=== PATIENT | female | born 1980 | race Caucasian/White ===

== ENCOUNTER 2022-06-08 08:16 | Observation (INO) ==
--- NOTE | 2022-05-17 11:32 | Anesthesiology Consultation ---
Date of Service May 17, 2022 Assessment & Plan (1) Encounter for pre-operative examination: - COVID screening: Per assessment on 05/17: No known COVID-19 positive contacts or current COVID-19 related symptoms. Travel screen negative. At surgeon discretion if preop Covid testing being done. - Outpatient joint assessment: Pt currently scheduled for inpatient pathway. If surgeon requests review for outpatient joint pathway, patient is an acceptable candidate for outpatient joint program from anesthesia standpoint pending surgeon's office assessment of pt motivation/strong home support/completion of same day joint program preop requirements. - S/P Left hip arthroscopy (for labral tear: 12/06/20): Grade view 2, MAC#3, ETT 7.5 at [facility]. No issues noted per post-op anesthesia progress note. Chart Review Chart Review: Acceptable Risk for Surgery and Patient seen in Pre Admission Testing Teaching & Discussion Pre-Anesthesia Teaching/Discussion Notes: Instructed NPO after midnight before surgery,except medications with 15 cc of water. Medication instructions pr ovided according to the PAT guidelines. History Surgery Operation Date: 06/08/22 07:00 Proposed Procedures p Left Total Hip Arthroplasty - Tae Manzanares MD Height/Weight Height: 5 ft 4 in Weight: 102.058 kg Allergies Allergy/AdvReac Type Severity Reaction Status Date / Time clarithromycin [From Biaxin] AdvReac Mild Gastrointestinal Verified 05/04/22 14:05 Upset Medications Home Medications Medication Instructions Recorded Confirmed Last Taken No Known Home Medications 05/04/22 05/04/22 Unknown Past Medical History Medical History Cardiac murmur Remotely noted per pt No significant murmur noted at PAT appt on 05/17/22 Enlarged thyroid Hx, under surveillance by PCP History of asthma As child History of COVID-19 07/2019 > resolved History of gestational diabetes Obesity Temporomandibular joint disorder Left sided clicking, no locking Exercise / Class Metabolic Activity II 4-5 Yardwork/Stairs/Walk up hill Past Family History Family History Other No family history of adverse response to anesthesia No known health problems Past Surgical History Surgical History History of cholecystectomy History of endometrial ablation History of hip surgery Left hip arthroscopy (for labral tear: 12/06/20): Grade view 2, MAC#3, ETT 7.5 at [facility]. No issues noted per post-op anesthesia progress note. History of tonsillectomy [place] teeth removed Past Anesthesia History No Hx of Anesthesia Complications and No Family Hx of Anesthesia Complications History of PONV No Hx of PONV and No Hx of Motion Sickness Social History Smoking Status: Never smoker Do You Dip or Chew Tobacco: No Hx Alcohol Use: No Hx Substance Use: No substance use type: does not use Review of Systems Patient denies chest pain, shortness of breath, dyspnea on exertion, fever, chills, cough, wheezing, palpitations. Physical Exam Vital Signs VITALS BP 123/83 P 62 TEMP 98.4 SP02 97%RA RESP 16 PHYSICAL Full cervical extension range of motion. Full TMJ range of motion. TMD 4 finger breaths Mallampati Score 1 Dentition: intact Lungs: clear throughout to auscultation Cardiac: regular rate and rhythm, no murmurs noted Spine: normal Extremities: no edema Lab Results Anesthesia Preop Results Results Anesthesia Widget: WBC 7.42 K/ul (4.8-10.8) 05/17/22 Hgb 12.7 g/dl (12.0-16.0) 05/17/22 Hct 38.0 % (34.1-44.9) 05/17/22 Plt 206 K/uL (130-400) 05/17/22 Na 139 mmol/L (136-145) 05/17/22 K 4.4 mmol/L (3.5-5.1) 05/17/22 Cl 107 mmol/L (98-107) 05/17/22 CO2 28 mmol/L (21-32) 05/17/22 BUN 20 mg/dl (6-23) 05/17/22 Creat 0.84 mg/dl (0.6-1.2) 05/17/22 Glucose Level 95 mg/dl (70-99(Fasting)) 05/17/22 PT 9.7 Seconds (9.0-12.0) 05/17/22 PTT 25.9 Seconds (21.0-31.0) 05/17/22 INR 0.9 (0.9-1.1) 05/17/22 HA1c 5.3 % (4.5-5.6) 05/17/22 Urine Color Dark Yellow 05/17/22 Urine Appearance Clear (Clear) 05/17/22 Urine pH 6.0 (4.5-7.5) 05/17/22 Urine Specific [place] 1.036 (1.000-1.030) H 05/17/22 Urine Protein Trace (Negative) H 05/17/22 Urine Glucose (UA) Negative (Negative) 05/17/22 Urine Ketones Negative (Negative) 05/17/22 Urine Blood Negative (Negative) 05/17/22 Urine Nitrite Negative (Negative) 05/17/22 Urine Bilirubin Negative (Negative) 05/17/22 Urine Urobilinogen Negative (Negative) 05/17/22 Urine Leukocyte Esterase Negative (Negative) 05/17/22 Urine WBC (Auto) 1-5 /hpf (0-5) 05/17/22 Urine RBC (Auto) 5-10 /hpf (0-4) H 05/17/22 Urine Hyaline Casts (Auto) 1-5 /lpf (0-5) 05/17/22 Urine Epithelial Cells (Auto) 20-30 /lpf (0-5) H 05/17/22 Urine Bacteria (Auto) Negative (Negative) 05/17/22 Blood Type O Positive 05/17/22 Antibody Screen NEGATIVE 05/17/22 Testing Electrocardiogram Date: 05/17/22 Findings: + SB @ (59) COVID-19 Risk Screen Screening Information COVID-19 Screen Date: 05/17/22 Exposure 21 Days Family/Household +COVID Last 21 Days: No Exposure 10 Days Any COVID Exposure Last 10 Days: No Symptoms Last 10 Days Experienced COVID Sx Last 10 Days: No + COVID 0-90 Days COVID + in Last 0-90 Days: No
--- NOTE | 2022-05-18 16:55 | History & Physical Report ---
Date of Service May 18, 2022 Assessment & Plan (1) Osteoarthritis of left hip: Plan: PRE-OP Diagnosis: Left hip osteoarthritis Planned Procedure: Left total hip arthroplasty Plan: Patient is scheduled to undergo this procedure at the [facility] with a 23-hour observation admission with Dr. Manzanares on May. Risks and complications of the procedure such as: Infection, bleeding, pain, scarring, nerve blood vessel damage, weakness, wound problems, stiffness, incomplete relief of symptoms, hardware failure, hardware loosening, wear, fracture, tendon or ligament injury, dislocation, leg length inequality, blood clots, Embolism, heart attack, stroke and were explained to the patient at her visit today. Informed consent to perform the procedure was obtained. Patient also understands risks of proceeding with surgical intervention during the COVID-19 pandemic. Currently she is asymptomatic and has not been in contact with anyone positive for the virus recently. Patient has an appointment to meet with anesthesia earlier this morning and while there she obtained a CBC with differential, complete metabolic panel, PT/INR, blood type and screen, urinalysis, urine culture and sensitivity, EKG, hemoglobin A1c and a nasal culture for MRSA. Patient will also need preoperative medical clearance from their primary care provider. Patient states that she plans on doing in- home physical therapy for the first 1 to 2 weeks postoperatively with [facility] home care. Patient states that she will most likely elect to do outpatient physical therapy near her home in [place]. Patient will need a walker, raised t oilet seat, shower chair and a hip kit. During today's visit we reviewed the total hip packet as well as precautions. We discussed discharge planning from the hospital. I provided paperwork to obtain a handicap placard for their vehicle. We discussed lectures offered by [facility] in regards to joint replacement surgery via Zoom. I advised the patient that upon discharge from hospital we will prescribe a narcotic pain medication and anti- inflammatory. Patient will also be on an 81 mg aspirin twice daily for blood clot prevention. Patient will be scheduled for 2-week postoperative follow-up visit with myself on June 21. At that visit we will Provide the patient with an order for outpatient physical therapy and rehab protocol. Patient verbalizes understanding of all information provided during today's visit. She thanks for the care that she received. If she has questions or concerns that should arise prior to her surgery, she will contact clinic. This chart was completed utilizing [employer] voice recognition software. Grammatical errors, random word insertions, pronoun errors, and in complete sentences are an occasional consequence of the system. Any questions or concerns about the content, text, or information contained within the body of this dictation should be addressed directly to the physician for clarification. History of Present Illness Chief Complaint: Chief Complaint: Left hip pain Primary Care Provider: Cheko Rogers MD History of Present Illness (including history relevant to procedure): This 41-year-old female presents to the clinic today for preoperative history and physical. Underwent a left hip labral repair with Dr. Manzanares back in 2020. She states that over the past several months she has developed increasing pain in her left groin with limited range of motion of her hip. She states she has difficulty transitioning from a seated to a standing position. She has tried oral steroids, corticosteroid injections and then rehab without any relief for pain. She states she feels a grinding sensation in her hip with certain movements. She states it is starting to affect her activities of daily living and has great difficulty performing either of her 2 jobs. Review Of Systems: A 12 point review of systems performed is unremarkable except for those things stated in the HPI past medical history Past Medical History: Problems: Osteoarthritis of left hip Labral tear of left hip joint Preop examination Left hip pain obesity hist of TMJ Procedure History Procedure Procedure Date Comments Ablation Cholecystectomy Left hip arthroscopy with labral repair Allergies and Sensitivities: No Known Medication Allergies Social history: Completely negative Family history: Hyperlipidemia, cancer and heart disease No Home Medications Found Allergies Allergy/AdvReac Type Severity Reaction Status Date / Time clarithromycin [From Biaxin] AdvReac Mild Gastrointestinal Verified 05/04/22 14:05 Upset Home Medications Medication Instructions Recorded Confirmed Type No Known Home Medications 05/04/22 05/04/22 History Past Med/Surg History Medical History Cardiac murmur Remotely noted per pt No significant murmur noted at PAT appt on 05/17/22 Enlarged thyroid Hx, under surveillance by PCP History of asthma As child History of COVID-19 07/2019 > resolved History of gestational diabetes Obesity Temporomandibular joint disorder Left sided clicking, no locking Surgical History History of cholecystectomy History of endometrial ablation History of hip surgery Left hip arthroscopy (for labral tear: 12/06/20): Grade view 2, MAC#3, ETT 7.5 at [facility]. No issues noted per post-op anesthesia progress note. History of tonsillectomy [place] teeth removed Family History Other No family history of adverse response to anesthesia No known health problems Social History Smoking Status: Never smoker Second Hand Exposure: Yes (SPOUSE SMOKES OUTSIDE/MOTHER SMOKED); Hx Alcohol Use: No Hx Substance Use: No Preferred Language: Nauruan Communication Ability: Effective Audio Video Tech Required: No Beliefs That Will Affect Care: None Current Living Situation: Family current occupational status: employed current occupation: [employer] Feels Safe at Home: Yes Assistive Devices: Crutches Review of Systems All systems reviewed & are unremarkable except as noted in Subjective Physical Exam Physical Exam: Physical Exam: (relevant to the procedure, including heart and lung evaluation) General: Alert and oriented x3 with proper grooming and hygiene Eyes: Pupils are equal reactive to light with accommodation. Extraocular movements are intact Throat: Posterior oropharynx clear with absence of edema, erythema or exudate. Dentition is in appropriate condition Cardiac: Regular rate and rhythm with no murmurs or gallops appreciated Lungs: Clear to auscultation throughout with no wheezing, rales or rhonchi Abdomen: Obese, nondistended, nontender with NABS Extremities: Left hip: Flexion is limited to 90 degrees, internal rotation to 5 degrees and external rotation to 40 degrees. Straight leg raise test causes referred pain to the groin. Logroll test causes referred pain to the groin. Stinchfield test positive. Scour impingement test is also positive. Patient is neurovascular intact in left lower extremity but does walk with a slight antalgic gait. Neuro: Cranial nerves II through XII intact no motor or sensory deficit Skin: Normal in appearance with no open skin areas or discharge Results & Data ([facility]) Diagnostic Findings Studies (relevant to the procedure): Left hip x-rays taken last visit and reviewed by quan superolateral joint line narrowing consistent with arthritis.
[~2022-06-08 08:16] MED LIST: ACETAMINOPHEN 500 MG TAB PO SCH; BUPIVACAINE 0.5 % 5 MG/1 ML PF 10ML VIAL ONE; CeleBREX 200 MG CAP PO SCH; FAMOTIDINE 20 MG TAB PO SCH; LR 15ML/HR IV SCH; LR 500ML BOLUS IV SCH; LR 60ML/HR IV SCH; ROPIVACAINE 0.5% HCL/PF 150 MG, BUPIVACAINE 0.75% MPF 20 ML, EPINEPHrine 0.15 MG, Ketor... INFIL SCH; ROPIVACAINE 0.5% HCL/PF 150 MG, BUPIVACAINE 0.75% MPF 20 ML, EPINEPHrine 30MG/30ML (OR ... INSTIL SCH; Scopolamine 1 MG TDSY TD SCH; TRANEXAMIC ACID 1,000 MG **IV Intra-op IV SCH; TRANEXAMIC ACID 1,000 MG **IV Pre-op IV SCH; ceFAZolin 2000MG 2,000 MG/15 ML SYR IV SCH; dexAMETHasone 4 MG TAB PO SCH; traMADol HCL 50 MG TABLET PO SCH
[2022-06-08] MEDS ORDERED: PROPOFOL IV EMULSION 10 MG/ML 20 ML VIAL IV ONE ×5 (09:39→12:50)
[2022-06-08] MEDS ORDERED: MIDAZOLAM HCL 1 MG/ML 2ML VIAL ONE (09:39)
[2022-06-08] MEDS ORDERED: fentaNYL citrate 100 MCG/2 ML VIAL ONE (09:40)
--- NOTE | 2022-06-08 11:01 | History & Physical Bridge Note ---
Date of Service June 08, 2022 History & Physical Bridge Note I have examined the patient, reviewed the History & Physical and in the interval since the performance of the History & Physical I have noted the following changes of clinical significance: no changes noted
[2022-06-08] MEDS ORDERED: fentaNYL citrate 100 MCG/2 ML VIAL IV PRN (11:02)
[2022-06-08] MEDS ORDERED: ATROPINE SULFATE 0.1 MG/ML 10ML SYR IV PRN (11:02)
[2022-06-08] MEDS ORDERED: ONDANSETRON INJ 2 MG/ML 2 ML VIAL IV PRN ×2 (11:02→14:06)
[2022-06-08] MEDS ORDERED: HYDROmorphone INJ 2 MG/ML SYR/VIAL IV PRN (11:02)
[2022-06-08] MEDS ORDERED: ePHEDrine sulfate 50 MG/ML AMP IV PRN (11:02)
[2022-06-08] MEDS ORDERED: PROMETHAZINE HCL 12.5 MG in SODIUM CHLORIDE 0.9% 50 ML IV PRN (11:02)
[2022-06-08] MEDS ORDERED: ORTHO JOINT ANESTHETIC ONE (11:24)
[2022-06-08] MEDS ORDERED: ceFAZolin 330 MG/ML 1 GM VIAL ONE (13:15)
[2022-06-08] MEDS: ceFAZolin 2000MG 2,000 MG/15 ML SYR IV ONE ×2 (13:16→17:18)
--- NOTE | 2022-06-08 13:53 | Operative Report ---
Post Operative Report Pre & Post Diagnosis Operation Date: 06/08/22 10:50 Pre-Op Diagnosis: Left Hip Osteoarthritis, morbid obesity, hip dysplasia Post-Op Diagnosis: Left Hip Osteoarthritis, morbid obesity, hip dysplasia I identified the patient and participated in the time-out.: Yes Procedure Operation Date: 06/08/22 10:50 Actual Procedures p Left Total Hip Arthroplasty(Left) 22 modifier due to hip dysplasia and morbid obesity increasing complexity of surgery - Tae Manzanares MD Surgeon Tae Manzanares MD Adjunct Physics Instructor ZACHARIAH Flaherty PA-C. No resident or fellow was available to assist. Estimated Blood Loss 200 Findings Consistent with Post-Op Diagnosis Specimens Left femoral head Anesthesia Type Spinal MAC Complications none Disposition Disposition: Recovery Room Indications 42-year-old female with left hip pain refractory to conservative management. Have previously performed a left hip arthroscopic surgery prior to her developing arthritis. Pain is affecting her activities of daily living. X-rays demonstrate [id number] superolateral arthritis as well as hip dysplasia with an upsloping sourcil and valgus femoral neck. Her body mass index is 39. I had a long discussion with her about the increased risk complications as a result of her hip dysplasia and elevated body mass index. Furthermore she is young and is likely going to need a revision total hip arthroplasty at some point in the future. After reviewing all the risks and benefits of surgery, alternatives, and expected outcomes she elected to proceed. All questions were answered. Informed consent was signed. Description of Procedure Patient was identified in the preoperative holding area where the surgical site, left hip, was marked. A spinal anesthetic was placed, then the patient was brought back to the main operating room, placed in the operating table and moved into the lateral decubitus position. Axillary roll was placed. All bony prominences were padded. Perioperative antibiotics and tranexamic acid 1 gram IV were administered. Operative extremity was prepped and draped in the normal sterile fashion. Prior to incision a multidisciplinary timeout was called. All in the room were in agreement. We began by making an incision for a posterior approach to the hip. This was approximately 30 cm in length secondary to her morbid obesity and subcutaneous tissues, approximately 4 inches thick of subcutaneous fat from the skin to the fascia. We dissected down through subcutaneous tissues to the level of the fascia. The fascia was incised in line with the incision. Charnley bow was placed. Fatty tissue was reflected posteriorly off the back of the greater trochanter to expose the piriformis and short external rotators of the hip. The piriformis and short external rotators were dissected off the posterior aspect of the hip. A box cut was made in the capsule. Inferior hip capsule was released off the femur. The femoral head was dislocated. The femoral neck cut was made at our preoperative template. The acetabulum was then exposed. Inspection of the acetabulum demonstrated some deficiency posterior superiorly of the acetabular rim, and a large labrum consistent with a dysplastic hip. The labrum was sharply excised. Contents of the cotyloid fossa were removed with electrocautery. We then began reaming at a size 8 mm less than our preoperative template. We reamed up by [address] way up to a size 48 mm cup. This gave us good bleeding cancellus bone circumferentially. The acetabulum was then irrigated out and dried. The real [place] Gription cup was then impacted down into position with 45 degrees of lateral opening and 25 degrees of anteversion. A single cancellous bone screw was placed up into the ilium. Excellent fixation was obtained. A trial liner for a 32 mm femoral head was then placed. Next we turned our attention to the femur. The lateral neck was removed with a box osteotome. Intramedullary guide was used followed by the lateralizing reamer. We then reamed up to a size 2 [place] stem. We then broached all the way up to a size 2. We began trialing with a high offset neck and a +9 head. Hip was reduced. Leg lengths were symmetric. The hip was stable in extension and external rotation, and stable in the sleeper position. At 90 degrees of hip flexion the hip could be internally rotated 65 degrees before levering out of the cup. I was very happy with the stability exam. Therefore the hip was dislocated and the femoral trial was removed. The acetabulum was re-exposed, and the trial liner was removed. An Altrx polyethylene liner for a 32 mm femoral head was then impacted into the shell. The locking mechanism was checked to ensure that it had engaged which it had. The femur was re-exposed. The femoral canal was irrigated and dried. The real size 2 high offset [place] femoral stem was opened up. This was impacted down into position. It sat at the same level as the femoral trial. Therefore the 32 mm ceramic femoral head with +9 mm offset was opened up and gently impacted down onto the trunnion. The hip was atraumatically reduced. Another 1 gram of IV tranexamic acid was started prior to closure. The wound was irrigated out with sterile Betadine solution. The periarticular injection cocktail was then placed. The short external rotators, piriformis, and facilities management executive ior capsule were repaired through drill holes in the greater trochanter using #2 Vicryl. The fascia was run with a looped #1 PDS. The subcutaneous layer was closed with #1 PDS in 2 layers. The dermal layer was closed with 2-0 Vicryl. Zip line was used for the skin followed by a Silverlon dressing. A compressive dressing was then placed. The patient was then rolled supine. Leg lengths were rechecked and were symmetric. An abduction pillow was placed. Sedation was lifted and the patient was transferred to the recovery room in stable condition. Summary of implants: Depuy [place] Gription Acetabular Shell Sector Cup, 48 mm outer diameter [place] Cancellous bone screw, 6.5 x 35 mm [place] Altrx Polyethylene Acetabular Liner, Neutral, with a 32 mm inner diameter DePuy [place] Femoral stem with [place], 12/14 taper, size 2 high offset 32 mm ceramic femoral head with +9 offset Postoperative course: Patient will be [] from the recovery room. Patient will be weightbearing as tolerated with posterior hip precautions. Aspirin for DVT prophylaxis I attest to the content of the Intraoperative Record and any orders documented therein. Any exceptions are noted below.
[2022-06-08] MEDS ORDERED: ALUMINUM/MAGNESIUM SUSP 30 ML UDC PO PRN (14:06)
[2022-06-08] MEDS ORDERED: bisacodyL 10 MG SUPP PR PRN (14:06)
[2022-06-08] MEDS ORDERED: METOCLOPRAMIDE HCL INJ 5 MG/ML 2 ML VIAL IV PRN (14:06)
[2022-06-08] MEDS ORDERED: diphenhydrAMINE 50 MG/ML VIAL IV PRN (14:06)
[2022-06-08] MEDS ORDERED: HYDROmorphone INJ 0.5 MG/0.5 ML SYR IV PRN (14:06)
[2022-06-08] MEDS ORDERED: MAGNESIUM HYDROXIDE SUSP 30 ML UDC PO PRN (14:06)
[2022-06-08] MEDS ORDERED: NALOXONE HCL 0.4 MG/1 ML VIAL/CARP IV PRN (14:06)
--- NOTE | 2022-06-08 14:06 | Operative Report ---
Post Operative Report Pre & Post Diagnosis Operation Date: 06/08/22 10:50 Pre-Op Diagnosis: Left Hip Osteoarthritis Post-Op Diagnosis: Left Hip Osteoarthritis I identified the patient and participated in the time-out.: Yes Procedure Operation Date: 06/08/22 10:50 Actual Procedures p Left Total Hip Arthroplasty(Left) - Tae Manzanares MD Surgeon Tae Manzanares MD Finance Intern ZACHARIAH Flaherty PA-C. No resident or fellow was available to assist. Estimated Blood Loss 200 Findings Consistent with Post-Op Diagnosis Specimens femoral head Description of Procedure I was present during the entire case assisting with positioning, prepping, draping, wound retraction, wound closure, dressing and abduction pillow placement. No fellow present. Please see Dr. Manzanares procedure note for specifics of the case. I attest to the content of the Intraoperative Record and any orders documented therein. Any exceptions are noted below.
[2022-06-08] MEDS ORDERED: SODIUM CHLORIDE 0.9% 1000ML 1,000 ML IV SCH (14:15)
--- NOTE | 2022-06-08 14:39 | XRay Report ---
AP PELVIS History: Left total hip arthroplasty. Degenerative arthritis. Postop. FINDINGS: The patient is status post a left total hip arthroplasty. The hardware is intact. No fractu re or dislocation. IMPRESSION: Left total hip arthroplasty. No evidence for hardware complication. ACT 112: Negative or not required by law. Electronically signed by: Rod Reynolds M.D. 06/08/2022 2:37 PM
--- NOTE | 2022-06-08 15:32 | Anesthesiology Progress Note ---
Date of Service June 08, 2022 Anesthesia Post Procedure Vital Signs Vital Signs: Temp Pulse Pulse Resp BP Pulse Ox O2 Del Method 06/08/22 14:25 68 13 126/62 95 Room Air 06/08/22 14:45 61 14 121/65 96 Room Air 06/08/22 14:35 36.7 C 69 16 113/57 L 96 Room Air 06/08/22 14:15 60 24 109/60 95 Room Air 06/08/22 14:05 36.2 C L 70 17 111/64 96 Room Air 06/08/22 09:04 36.9 C 76 20 126/68 96 Room Air Transfer of Care Handoff Completed per policy Notes Mental Status: alert / awake / arousable and participated in evaluation Nausea / Vomiting: adequately controlled Pain: adequately controlled Airway Patency, RR, SpO2: stable & adequate BP & HR: stable & adequate Hydration State: stable & adequate Neuraxial Anesthesia: was administered and sensory block is resolving Anesthetic Complications: no major complications apparent and Pt Satisfied with anesthetic care
[2022-06-08] MEDS: Scopolamine CHECK PATCH PLACEMENT SCH ×2 (16:13→23:08)
[2022-06-08] MEDS: KETOROLAC 30 MG/ML VIAL IV SCH ×2 (16:47→21:03)
[2022-06-08] MEDS: ceFAZolin 2000MG 2,000 MG/15 ML SYR IV SCH (19:33)
[2022-06-08] MEDS ORDERED: TRANEXAMIC ACID / 0.7% NACL 1,000 MG/100 ML BAG IV SCH (20:15)
[2022-06-08] MEDS: DOCUSATE SODIUM 100 MG CAP PO SCH (20:31)
[2022-06-08] MEDS: ASPIRIN 81 MG ECTAB PO SCH (20:32)
[2022-06-08] MEDS ORDERED: SENNA 8.6 MG TAB PO SCH (21:00)
[2022-06-08] MEDS: ACETAMINOPHEN 500 MG TAB PO SCH (21:03)
[2022-06-09] MEDS: oxyCODONE HCL IR 5 MG TAB (IMMEDIATE RELEASE) PO PRN ×2 (00:08→08:20)
[2022-06-09] MEDS: KETOROLAC 30 MG/ML VIAL IV SCH ×2 (03:36→10:40)
[2022-06-09] MEDS: ceFAZolin 2000MG 2,000 MG/15 ML SYR IV SCH (03:36)
[2022-06-09] MEDS: ACETAMINOPHEN 500 MG TAB PO SCH (05:46)
[2022-06-09 06:46] LABS: Hematocrit (blood only) 31.6 % (37.0-47.0); Hemoglobin 10.6 g/dl (12.0-16.0); Mean Corpuscular Hemoglobin 29.7 pg (25.0-34.0); Mean Corpuscular Hgb Conc 33.5 g/dL (32.0-36.0); Mean Corpuscular Volume 88.5 fL (80.0-100.0); Mean Platelet Volume 10.8 fL (9.4-12.4); Platelet Count 202 K/uL (130-400); RDW Coefficient of Variation 13.1 % (11.5-14.5); RDW Standard Deviation 42.5 fL (36.4-46.3); Red Blood Count 3.57 M/uL (4.20-5.40); White Blood Count 17.98 K/ul (4.8-10.8)
[2022-06-09 07:15] LABS: Basophils # (auto) 0.02 K/uL (0-0.2); Basophils % (auto) 0.1 %; Immature Granulocytes % (auto) 0.6 %; Lymphocytes # (auto) 1.04 K/uL (1.2-3.4); Lymphocytes % (auto) 5.8 %; Monocytes # (auto) 0.51 K/uL (0.11-0.59); Monocytes % (auto) 2.8 %; Neutrophils # (auto) 16.31 K/uL (1.40-6.50); Neutrophils % (auto) 90.7 %; RBC Morphology Unremarkable
[2022-06-09 07:19] LABS: Potassium 4.9 mmol/L (3.5-5.1)
[2022-06-09 07:25] LABS: Creatinine Clr Calc Pharmacy 96.2 ml/min; Est GFR (African American) 93.9 ml/min
[2022-06-09] MEDS ORDERED: dexAMETHasone 4 MG TAB PO SCH (08:00)
[2022-06-09] MEDS: ASPIRIN 81 MG ECTAB PO SCH (08:15)
[2022-06-09] MEDS: DOCUSATE SODIUM 100 MG CAP PO SCH (08:15)
[2022-06-09] MEDS: Scopolamine CHECK PATCH PLACEMENT SCH (08:16)
[2022-06-09] MEDS ORDERED: MULTIVITAMIN TAB PO SCH (09:00)
--- NOTE | 2022-06-09 09:47 | Orthopedic Progress Note ---
Date of Service June 09, 2022 Assessment & Plan (1) S/P total left hip arthroplasty: Plan: Total hip precautions reviewed Weightbearing as tolerated with walker assistance PT/OT DVT prophylaxis with CHRISTA stockings and aspirin Pain controlled p.o. medication Keep Silverlon dressing in place until 2-week follow-up Abduction pillow use x6 weeks postoperatively Ice with easy wrap Plan is to discharge home later this afternoon with in-home physical therapy for the first 2 weeks postoperatively Follow-up at [facility] orthopedics as previously scheduled. With questions contact our clinic at [phone] Admission and Anticipated Discharge Date Admission Date: June 08, 2022 Subjective This 42-year-old female is day 1 status post left total hip arthroplasty. She states she is doing very well. She is very anxious to be discharged home. She states she has been able to transition from her bed to a seated and standing position and maneuver to the bathroom with assistance of her walker. She states that her pain is well controlled with p.o. pain medication. She states that her groin pain has resolved completely. Currently she denies chest pain, shortness of breath, fever, chills, sweats, nausea, vomiting or numbness or tingling in her left lower extremity. Review of Systems Review of Systems: All systems reviewed & are unremarkable except as noted in Subjective Physical Exam Physical Exam: Left hip: Outer dressing was removed. Silverlon's are clean dry and intact. Patient is able to form active straight leg raise test. She is able to actively dorsi and plantarflex her foot without issue. Logroll test negative. Patient has no pain with light passive hip flexion to 90 degrees. She does experience slight twinge of pain with light passive internal and external hip rotation. Quad strength is 4 out of 5. Patient is neurovascularly intact in left lower extremity. Results & Data ([facility]) Vital Signs (Past 12 Hours) Vital Signs Temp Pulse Resp BP Pulse Ox O2 Del Method 06/09/22 09:24 37.0 C 63 14 103/58 L 95 06/09/22 07:15 37.0 C 63 14 103/58 L 95 Room Air 06/09/22 03:32 36.9 C 69 14 111/60 96 Room Air 06/08/22 22:28 36.7 C 69 16 112/64 96 Room Air Diagnostic Findings Laboratory Results WBC 17.98 K/ul (4.8-10.8) H 06/09/22 06:17 RBC 3.57 M/uL (4.20-5.40) L 06/09/22 06:17 Hgb 10.6 g/dl (12.0-16.0) L 06/09/22 06:17 Hct 31.6 % (37.0-47.0) L 06/09/22 06:17 MCV 88.5 fL (80.0-100.0) 06/09/22 06:17 MCH 29.7 pg (25.0-34.0) 06/09/22 06:17 MCHC 33.5 g/dL (32.0-36.0) 06/09/22 06:17 RDW Std Deviation 42.5 fL (36.4-46.3) 06/09/22 06:17 RDW Coeff of Flavio 13.1 % (11.5-14.5) 06/09/22 06:17 Plt Count 202 K/uL (130-400) 06/09/22 06:17 MPV 10.8 fL (9.4-12.4) 06/09/22 06:17 Immature Gran % (Auto) 0.6 % 06/09/22 06:17 Neut % (Auto) 90.7 % 06/09/22 06:17 Lymph % (Auto) 5.8 % 06/09/22 06:17 [place] % (Auto) 2.8 % 06/09/22 06:17 Eos % (Auto) 0.0 % 06/09/22 06:17 Baso % (Auto) 0.1 % 06/09/22 06:17 Neut # (Auto) 16.31 K/uL (1.40-6.50) H 06/09/22 06:17 Lymph # (Auto) 1.04 K/uL (1.2-3.4) L 06/09/22 06:17 [place] # (Auto) 0.51 K/uL (0.11-0.59) 06/09/22 06:17 Eos # (Auto) 0.00 K/uL (0-0.50) 06/09/22 06:17 Baso # (Auto) 0.02 K/uL (0-0.2) 06/09/22 06:17 Immature Gran # (Auto) 0.10 K/uL (0.01-0.20) 06/09/22 06:17 RBC Morphology Unremarkable 06/09/22 06:17 Sodium 137 mmol/L (136-145) 06/09/22 06:17 Potassium 4.9 mmol/L (3.5-5.1) 06/09/22 06:17 Chloride 107 mmol/L (98-107) 06/09/22 06:17 Carbon Dioxide 24 mmol/L (21-32) 06/09/22 06:17 Anion Gap 6 (3-11) 06/09/22 06:17 BUN 20 mg/dl (6-23) 06/09/22 06:17 Creatinine 0.87 mg/dl (0.6-1.2) 06/09/22 06:17 Est Cr Clr Drug Dosing 96.2 ml/min 06/09/22 06:17 Est GFR ( Amer) 93.9 ml/min 06/09/22 06:17 Est GFR (Non-Af Amer) 81.0 ml/min 06/09/22 06:17 BUN/Creatinine Ratio 23.0 (10-20) H 06/09/22 06:17 Glucose 165 mg/dl (70-99(Fasting)) H 06/09/22 06:17 Calcium 9.0 mg/dl (8.5-10.1) 06/09/22 06:17 POC Ur Test NEG (NEG) 06/08/22 09:01 SARS-CoV-2, RNA, NAAT NEGATIVE (NEGATIVE) 06/08/22 Unknown Impressions Pelvis X-Ray 06/08/22 14:06 AP PELVIS History: Left total hip arthroplasty. Degenerative arthritis. Postop. FINDINGS: The patient is status post a left total hip arthroplasty. The hardware is intact. No fracture or dislocation. IMPRESSION: Left total hip arthroplasty. No evidence for hardware complication. ACT 112: Negative or not required by law. Electronically signed by: Rod Reynolds M.D. 06/08/2022 2:37 PM
--- NOTE | 2022-06-09 09:54 | Discharge Summary ---
Date of Service June 09, 2022 Admission HPI Per Admitting Provider History of Present Illness (including history relevant to procedure): This 41-year-old female presents to the clinic today for preoperative history and physical. Underwent a left hip labral repair with Dr. Leighton grey in 2020. She states that over the past several months she has developed increasing pain in her left groin with limited range of motion of her hip. She states she has difficulty transitioning from a seated to a standing position. She has tried oral steroids, corticosteroid injections and then rehab without any relief for pain. She states she feels a grinding sensation in her hip with certain movements. She states it is starting to affect her activities of daily living and has great difficulty performing either of her 2 jobs. Review Of Systems: A 12 point review of systems performed is unremarkable except for those things stated in the HPI past medical history Past Medical History: Problems: Osteoarthritis of left hip Labral tear of left hip joint Preop examination Left hip pain obesity hist of TMJ Procedure History Procedure Procedure Date Comments Ablation Cholecystectomy Left hip arthroscopy with labral repair Allergies and Sensitivities: No Known Medication Allergies Social history: Completely negative Family history: Hyperlipidemia, cancer and heart disease No Home Medications Found Admission Exam Per Admitting Provider Physical Exam: (relevant to the procedure, including heart and lung evaluation) General: Alert and oriented x3 with proper grooming and hygiene Eyes: Pupils are equal reactive to light with accommodation. Extraocular movements are intact Throat: Posterior oropharynx clear with absence of edema, erythema or exudate. Dentition is in appropriate condition Cardiac: Regular rate and rhythm with no murmurs or gallops appreciated Lungs: Clear to auscultation throughout with no wheezing, rales or rhonchi Abdomen: Obese, nondistended, nontender with NABS Extremities: Left hip: Flexion is limited to 90 degrees, internal rotation to 5 degrees and external rotation to 40 degrees. Straight leg raise test causes referred pain to the groin. Logroll test causes referred pain to the groin. Stinchfield test positive. Scour impingement test is also positive. Patient is neurovascular intact in left lower extremity but does walk with a slight antalgic gait. Neuro: Cranial nerves II through XII intact no motor or sensory deficit Skin: Normal in appearance with no open skin areas or discharge Principal Diagnosis Left hip osteoarthritis Discharge Exam Left hip: Outer dressing was removed. Silverlon's are clean dry and intact. Patient is able to form active straight leg raise test. She is able to actively dorsi and plantarflex her foot without issue. Logroll test negative. Patient has no pain with light passive hip flexion to 90 degrees. She does experience slight twinge of pain with light passive internal and external hip rotation. Quad strength is 4 out of 5. Patient is neurovascularly intact in left lower extremity. Discharge Data Allergies Allergy/AdvReac Type Severity Reaction Status Date / Time clarithromycin [From Biaxin] AdvReac Mild Gastrointestinal Verified 06/08/22 09:08 Upset Procedures Performed Operation Date: 06/08/22 10:50 Actual Procedures p Left Total Hip Arthroplasty(Left) - Tae Manzanares MD Hospital Course (1) S/P total left hip arthroplasty: Patient had an uneventful overnight stay following left total hip arthroplasty. She is very pleased with the results of her surgery. She states that her pain is well controlled with the p.o. pain medication. She is very anxious to be discharged home. She states that she is already established with a therapist coming to her home for postoperative PT for the first 2 weeks postoperatively. Total hip precautions reviewed Weightbearing as tolerated with walker assistance PT/OT DVT prophylaxis with CHRISTA stockings and aspirin Pain controlled p.o. medication Keep Silverlon dressing in place until 2-week follow-up Abduction pillow use x6 weeks postoperatively Ice with easy wrap Plan is to discharge home later this afternoon with in-home physical therapy for the first 2 weeks postoperatively Follow-up at [facility] orthopedics as previously scheduled. With questions contact our clinic at [phone] Total Time Total Time Spent Total Time Spent (In Minutes): 15 mins Discharge Plan Discharge Items Patient Disposition: Home - Home Health Services Reason For Visit: POST SURGICAL CARE Discharge Diagnosis: Left Hip Osteoarthritis Activity: As commented below Lifting: None Bathing: Keep incision dry Bathing Comment: may shower tomorrow Sexual Activity: Wait until after follow-up appointment Exercise/Sports: Wait until after follow-up appointment Driving/Machine Use: No driving until cleared by channel specialist Weightbearing: Left weightbearing Weightbearing Comment: as tolerated with walker assistance Non-emergency contact: Surgeon Call non-emergency contact if: you have any medication questions, your pain is not controlled, your temperature is above 101.5, your wound has increased drainage and your wound pain has increased Follow-up/Referrals: Cheko Rogers MD [Primary Care Provider] - Diet: Regular Addtl Attending Provider Instructions: Post-operative Instructions Dear Patient and Family/Friends, Before you are discharged from the hospital, it is important to know what to expect when you get home after surgery. To that end, we have created this sheet of discharge instructions which covers many commonly asked questions. Make sure you go through this sheet in its entirety with your nurse before you are discharged. Please note that we will go over the specifics of your surgery and recovery when you return for your first post-operative visit. Sincerely, Dr. Manzanares Medications 1. Oxycodone 5 mg tablet: Take 1-2 tabs every 4-6 hours as needed for pain control. A prescription will be sent to your pharmacy for this medication. 2. Diclofenac sodium 75 mg tablet: Take 1 tab twice daily for the first 30 days postoperatively. A prescription will be sent to your pharmacy with 1 refill. 3. Aspirin 81 mg tablet: Take 1 tab twice daily for the first 30 days postoperatively for blood clot prevention. 4. Extra strength Tylenol 500 mg tablet: Take 2 tabs every 6-8 hours as needed for additional pain relief. Please purchase this medication. 5. Cephalexin 500 mg capsule: take 1 tab 3 times daily for next 7 days for infection prevention. This will be sent to your pharmacy. Pain Expect to be in a fair amount of pain after surgery. Remember, our goal is not to eliminate your pain, but to make it tolerable. It is a good idea to stay ahead of your pain by taking the medications you were prescribed once you get home. Typically, the pain starts improving 3-7 days after surgery. You should start weaning off the narcotic pain medication (oxycodone, hydrocodone, hydromorphone, morphine) as soon as your pain improves. Please call our office if your pain is not adequately controlled. Ice Ice your operative site at least 5 times a day for 15-30 minutes at a time. Make sure you have a thin cloth between the ice or cooling unit and your skin to prevent cali bite. This is especially important if you received a nerve block. Continue icing your operative site for the first 5-7 days after surgery, then as needed. Diet/Nausea/Vomiting Start by drinking clear liquids and eating crackers. If you can tolerate this, then you may resume your normal diet. If you feel nauseated or vomit, take Zofran/ondansetron (if prescribed). Please call our office if you have intractable nausea or vomiting, or, if after hours, you may go to the Emergency Room for help. Constipation Constipation is a common side effect of narcotic pain medication. If you have not had a bowel movement within 2 days after surgery, we recommend purchasing an over the counter laxative such as Milk of Magnesia, Dulcolax, or Miralax from a local pharmacy, and taking it as instructed. Call our clinic if any questions. Slings and Braces If you were placed in a sling or brace, it must be worn at all times, including sleep. You may remove your sling or brace for physical therapy, home exercises, and showering. The length of time you will be in your brace and range of motion restrictions depends on what surgery you had; these details will be reviewed at your first post-operative appointment. Nerve block The anesthesia team sometimes places a nerve block to help with post-operative pain control. This results in significant numbness and inability to move the extremity. The nerve block usually wears off in 8-12 hours, but sometimes can last up to 24 hours. Please call our office if you are still unable to move your extremity after 24 hours, unless you received a pain pump to take home. Nerve blocks typically wear off quickly, so start taking pain medication as soon as you start feeling soreness near your surgical site. Weight bearing and Range of Motion. Do not bear any weight through your operative extremity immediately after surgery. If you had upper extremity surgery, do not lift anything with that arm. If you are in a knee brace, keep it locked in place until your follow-up. We will discuss your weight bearing, range of motion, and lifting restrictions in detail at your first post-operative appointment. Continuous Passive Motion (CPM) Machine If you were prescribed a CPM machine, it will start after your first post- operative appointment, at which time we will give you instructions on the range of motion settings and duration of treatment Physical therapy You will be given a prescription for physical therapy or occupational therapy at your first post-operative appointment. Typically, patients start therapy within 1 week of surgery Wound care and showering We will inspect your wound at your first post-operative visit, and may do a dressing change at that time. Most patients will be in a water-proof dressing that is removed 14 days after surgery. It is normal to see some dried blood on the dressing. Do not remove your dressing, paper strips or sutures yourself unless you are given permission. Showering is allowed the day after surgery. Do not scrub or remove any dressings. The wound should not be submerged underwater (i.e. in a bathtub or pool) until 4 weeks after surgery CHRISTA stockings If you were given white stockings, these are to be worn at all times except to shower (on both legs) for the first 2 weeks after surgery. Driving You may not drive while taking narcotic pain medication or while in a cast, splint, sling or brace. You, the patient, need to make the final determination about when you are safe to drive, however, the earliest you may consider driving after surgery is below: Hand/Wrist/Elbow Surgery: 3 days Shoulder Surgery: 2 weeks Hip,/Knee/Ankle Surgery: 4 weeks Fracture repair: 6 weeks Return to Work Your return to work depends on what surgery was done and what type of work you do. Please bring any paperwork your employer needs completed to your first post-operative visit. Also, bring a description of your job duties, as this helps us to understand what risks you may face at work. Travel Avoid long distance travel (greater than 1 hour) in airplanes and cars for the first 6 weeks after surgery. If you must travel, you need to have a Doppler ultrasound done before you travel to rule out a blood clot in your legs. Follow-up You should have a follow-up appointment already scheduled 1-2 days after surgery. If not, please contact our office to make this appointment before you leave the hospital. When to call the office It is normal to have swelling and bruising in the limb that was operated on. This will improve with time. It is also normal to have fevers for the first 2 days after surgery. Reasons you should call your doctor include: Uncontrolled pain; Nausea, vomiting, or constipation that does not improve with medication; Fevers over 101.5, chills, sweats; Drainage or bleeding from the wound; Foul odor; Spreading areas of redness; Any other concerns Pending Studies at Discharge: No Stand-Alone Forms: [facility] Medications and DC Order Prescriptions: New acetaminophen [Tylenol Extra Strength] 500 mg Tablet 1,000 mg PO Q8 30 Days Qty: 180 0RF aspirin 81 mg Tablet,Delayed Release (Dr/Ec) 81 mg PO BID 30 Days Qty: 60 0RF oxycodone 5 mg Tablet 5 - 10 mg PO Q4H PRN (Reason: Postoperative pain control) Qty: 28 0RF cephalexin 500 mg capsule 500 mg PO TID 7 Days Qty: 21 0RF diclofenac sodium 75 mg tablet,delayed release (DR/EC) 75 mg PO BID 30 Days Qty: 60 1RF Admission Data Admit Date/Time: 06/08/22 14:06 Attending Provider: Tae Manzanares Admit Provider: Tae Manzanares Primary Care Provider: Cheko Rogers Other Providers: Prakash,Home Health Other Interventions: Discharge Summary Assessment (RN) Last Done: 06/09/22 09:24
== END 2022-06-09 12:05 | disposition home health service (06) ==
LOC: ASU 08:16 → 3E 08:16